=== PATIENT | female | born 1935 | race Caucasian/White ===

== ENCOUNTER 2016-07-04 10:55 | Emergency (ER) | payer OTHER ==
[~2016-07-04] VITALS: Ht 160 cm; Wt 96.0 kg
[~2016-07-04 10:55] MED LIST: FLUO1TAB3 PO; LORA1TAB12 PO
[2016-07-04 10:58] VITALS: BP 155/76; PULSE 69; RESP 18; TEMP 98; O2SAT 96
--- NOTE | 2016-07-04 11:08 | PD ---
HPI Chief Complaint: Cold / Flu Symptoms Time Seen by Provider: 11:02 Travel History International Travel<30 days: No Contact w/Intl Traveler<30days: No Traveled to known affect area: No History of Present Illness HPI 81-year-old female here with complaint of one week of flulike symptoms. Notes initially nasal congestion, postnasal drip and slight sore throat. Since, it has "moved into my chest", notes cough, productive of clearish sputum. Wheezing. No history of underlying cardiopulmonary disease. Given the duration of her symptoms, intractable cough, patient presents the ER. No recent travel. Multiple sick contacts ill with similar symptoms. PFSH Past Medical History Hx Anticoagulant Therapy: No Anxiety: Yes Cardiovascular Problems: No Chemotherapy: No Cerebrovascular Accident: No Diabetes: No Diminished Hearing: No Respiratory: No Immunizations Current: Yes ?: Not Menopausal: No : 1 Para: 1 Past Surgical History Hysterectomy: No Social History Alcohol Use: No (twice a week, one drink) Tobacco Use: No (quit 35 years ago) Allergies-Medications (Allergen,Severity, Reaction): Coded Allergies: Celebrex (Verified Allergy, Mild, ABDOMINAL PAIN, 07/04/16) Reported Meds & Prescriptions Reported Meds & Active Scripts Active Lorazepam 1 Mg Tab 1 Mg PO BID PRN Reported Fluoxetine (Fluoxetine HCl) 20 Mg Tab 20 Mg PO DAILY Review of Systems Except as stated in HPI: all other systems reviewed are Neg Physical Exam Narrative GENERAL: Well-appearing female in no acute distress SKIN: Warm and dry. HEAD: Normocephalic. EYES: No scleral icterus. No injection or drainage. ENT: TMs clear bilaterally. Posterior pharynx clear. No nasal bleeding or discharge. Mucous membranes pink and moist. NECK: Supple without nuchal rigidity CARDIOVASCULAR: Regular rate and rhythm. No murmur appreciated. RESPIRATORY: No accessory muscle use. Expiratory wheezing heard most in the upper lung draper. Intermittent primarily dry cough on exam GASTROINTESTINAL: Abdomen soft, non-tender, nondistended. Obese MUSCULOSKELETAL: No obvious deformities. No edema. NEUROLOGICAL: Awake and alert. Normal speech. PSYCHIATRIC: Appropriate mood and affect; insight and judgment normal. Data Data Last Documented VS Vital Signs Date Time Temp Pulse Resp B/P Pulse Ox O2 Delivery O2 Flow Rate FiO2 07/04/16 11:23 Room Air 07/04/16 10:58 98.0 69 18 155/76 96 Orders Chest, Single Ap (07/04/16 ) [facility] Medical Decision Making Medical Screen Exam Complete: Yes Emergency Medical Condition: Yes Medical Record Reviewed: Yes Differential Diagnosis 81-year-old female with one week of flulike symptoms and nasal congestion, postnasal drip, sore throat, chest congestion and cough. Differential includes viral syndrome, influenza, bronchitis, pneumonia, new onset CHF. Narrative Course Patient placed on monitor. Chest x-ray was obtained that by my read shows no acute abnormalities, evidence of focal infiltrate. We'll treat for bronchitis for home. Diagnosis Primary Impression: Bronchitis Referrals: Primary Care Physician as needed Patient Instructions: Acute Bronchitis (ED), General Instructions Additional Instructions: Finished steroids as prescribed. Mucinex as needed for cough and chest congestion. Albuterol as needed for wheezing. Return to the ER for the warning signs discussed and follow-up with PCP if symptoms persist. Med/Other Pt SpecificInfo: Prescription(s) given Scripts Albuterol 18 GM Inh (Ventolin Hfa 18 GM Inh)90 Mcg/Act Aer2 Puff INH Q4H PRN ( SHORTNESS OF BREATH) #1 INHALER Ref 0 Prov:Tiffanie Martino MD 07/04/16 Guaifenesin ER 12 HR (Mucinex ER 12 HR)600 Mg [id number] Mg PO BID 7 Days Ref 0 Prov:Tiffanie Martino MD 07/04/16 Prednisone 20 Mg Tab40 Mg PO DAILY 5 Days Ref 0 Take 40 mg (2 tablets) daily for 5 days Prov:Tiffanie Martino MD 07/04/16 Disposition: 01 DISCHARGE HOME Condition: Stable Tiffanie Martino MD Jul 04, 2016 11:08
--- NOTE | 2016-07-04 11:45 | RADHPO ---
EXAM DATE/TIME: 07/04/2016 11:29 [facility] COMPARISON: CHEST PA & LAT, May 13, 2015, 0:55. INDICATIONS : Cough and fever for over one week. Cough is productive. MEDICAL HISTORY : None. SURGICAL HISTORY : None. ENCOUNTER: Initial ACUITY: 4 - 6 days PAIN SCORE: 0/10 LOCATION: Bilateral chest FINDINGS: A single view of the chest demonstrates the lungs to be symmetrically aerated without evidence of mas s, infiltrate or effusion. The cardiomediastinal contours are unremarkable. Osseous structures are intact. CONCLUSION: No evidence of acute cardiopulmonary disease. Epifanio Toney MD on July 04, 2016 at 11:43 Board Certified Radiologist. This report was verified electronically.
[2016-07-04] MEDS ORDERED: MUCI600T PO (11:52)
[2016-07-04] MEDS ORDERED: PRED20 PO (11:52)
[2016-07-04] MEDS ORDERED: VENTAER INH (11:52)
[2016-07-04 12:06] VITALS: BP 150/74
[2016-10-01] MEDS ORDERED: GABA100C4 PO (11:06)
[2016-10-01] MEDS ORDERED: LORA1TAB12 PO ×2 (11:06→11:37)
[2016-10-01] MEDS ORDERED: FLUO1TAB3 PO (11:36)
== END 2016-07-04 12:08 | disposition home or self-care (01) ==
LOC: PHED 10:55
DX: J40 Bronchitis, not specified as acute or chronic (principal)
CPT/HCPCS: 71010; 99283

== ENCOUNTER 2017-08-06 16:34 | Emergency (ER) | payer OTHER ==
[~2017-08-06] VITALS: Ht 160 cm; Wt 88.5 kg
[2017-08-06 17:02] VITALS: BP 120/57; PULSE 72; RESP 16; TEMP 97.7; O2SAT 97
[2017-08-06 19:25] VITALS: BP 137/67; PULSE 68; RESP 16; O2SAT 97
[2017-08-06] MEDS ORDERED: GABA100C4 PO (19:26)
[2017-08-06] MEDS ORDERED: SODIUM CHLORIDE 0.9% FLUSH 10 ML FLUSH IVF PRN (19:45)
--- NOTE | 2017-08-06 19:48 | PD ---
HPI Chief Complaint: Cardiac Complaint Time Seen by Provider: 19:34 Travel History International Travel<30 days: No Contact w/Intl Traveler<30days: No Traveled to known affect area: No History of Present Illness HPI 82-year-old female presents to the emergency department for complaint of possible low blood pressure and discomfort behind the left scapula. Symptoms began this afternoon while at rest. Patient states because she developed the discomfort in her posterior shoulder she decided to check her blood pressure and that is when she noticed that her blood pressure was not detected on the home blood pressure device. Patient states she checked her pressure 3 times but could not get an adequate reading so she had her check his blood pressure which was reportedly resulting as normal. Patient decided to come to the emergency room to have her blood pressure checked. Patient states at home her discomfort along her left posterior shoulder was 4/10 in intensity, upon arrival to the emergency department her discomfort was 2/10 in intensity, and currently her discomfort is 0/10 intensity; patient denies any associated symptoms of chest pain, shortness of breath, referred neck, jaw, shoulder, arm, or abdominal pain. No upper extremity numbness tingling or weakness. Patient denies any specific injury. Patient has had no shortness of breath and no pleuritic pain or pleuritic chest pain. Patient denies any recent long distance travel protracted bedrest or surgical procedure. Patient also denies any personal history or family history of clotting disorder. Patient does have family history of CAD. Patient herself denies history of hypertension dyslipidemia diabetes tobaccoism or known coronary vessel disease. Patient has history of normally low blood pressure and peripheral neuropathy affecting the lower extremities bilaterally. Patient reports today after walking approximately a mile she noticed that her lower legs were hurting which is typical of her peripheral neuropathy pain but that after sitting down her symptoms seem to resolve and she has no discomfort in her lower extremities at this time. Patient denies any sudden onset lower extremity pain, pallor or coolness, nor swelling or redness. Patient is followed by Dr. Cornelius her neurologist. [facility] Past Medical History Narrative Medical Anxiety, lower extremity peripheral neuropathy; no tobacco; nursing notes reviewed Hx Anticoagulant Therapy: No Anxiety: Yes Cardiovascular Problems: No Chemotherapy: No Cerebrovascular Accident: No Diabetes: No Diminished Hearing: No Respiratory: No Immunizations Current: Yes Menopausal: No : 1 Para: 1 Past Surgical History Hysterectomy: No Social History Alcohol Use: No (twice a week, one drink) Tobacco Use: No (quit 35 years ago) Substance Use: No Allergies-Medications (Allergen,Severity, Reaction): Coded Allergies: celecoxib (Verified Allergy, Mild, ABDOMINAL PAIN, 08/06/17) Reported Meds & Prescriptions Reported Meds & Active Scripts Active Fluoxetine (Fluoxetine HCl) 20 Mg Tab 20 Mg PO DAILY Lorazepam 1 Mg Tab 1 Mg PO DAILY PRN Reported Gabapentin 100 Mg Cap 100 Mg PO DAILY Review of Systems Except as stated in HPI: all other systems reviewed are Neg General / Constitutional: No: Fever, Chills HENT: No: Congestion Cardiovascular: No: Chest Pain or Discomfort, Palpitations, Syncope, Dyspnea on exertion Respiratory: No: Cough, Shortness of Breath, Wheezing Gastrointestinal: No: Nausea, Vomiting, Abdominal Pain Genitourinary: No: Dysuria, Flank Pain Musculoskeletal: Positive: Pain (Bilateral lower extremity secondary to chronic peripheral neuropathy), No: Myalgias, Arthralgias Skin: No Rash Neurologic: No: Weakness Psychiatric: No: Anxiety Hematologic/Lymphatic: No: Lymph Node Enlargement Physical Exam Narrative GENERAL: Well-developed well-nourished female no acute distress or respiratory distress SKIN: Warm and dry. HEAD: Normocephalic. EYES: No scleral icterus. No injection or drainage. NECK: Supple, trachea midline. No JVD or lymphadenopathy. CARDIOVASCULAR: Regular rate and rhythm without murmurs, gallops, or rubs. RESPIRATORY: Breath sounds equal bilaterally. No accessory muscle use. GASTROINTESTINAL: Abdomen soft, non-tender, nondistended. MUSCULOSKELETAL: No cyanosis, or edema. Radial pulses 2+ to palpation bilaterally right dorsalis pedis pulse and posterior tibialis pulse 2+ to palpation left dorsalis pedis pulse 1+ to palpation posterior tibialis 2+ to palpation. Capillary refill brisk less than 2 seconds per digit bilaterally sensory exam intact. Motor strength 5/5. Bilateral lower leg no tenderness to palpation no pallor no coolness, also negative Homans, posterior calf cording edema or erythema. BACK: Nontender without obvious deformity. No CVA tenderness. Reproducible tenderness along the upper medial aspect of the left scapula and trapezius musculature reproduces pain noted earlier. Data Data Last Documented VS Vital Signs Date Time Temp Pulse Resp B/P (MAP) Pulse Ox O2 Delivery O2 Flow Rate FiO2 08/06/17 19:55 124/63 (83) 139/66 (90) 08/06/17 19:25 68 16 97 Room Air 08/06/17 17:02 97.7 Orders Orders Electrocardiogram (08/06/17 19:34) Ckmb (Isoenzyme) Profile (08/06/17 19:34) Complete Blood Count With Diff (08/06/17 19:34) Comprehensive Metabolic Panel (08/06/17 19:34) Magnesium (Mg) (08/06/17:34) Prothrombin Time / Inr (Pt) (08/06/17:34) Act Partial Throm Time (Ptt) (08/06/17:34) Troponin I (08/06/17:34) Lipase (08/06/17:34) Ecg Monitoring (08/06/17:34) Bilateral Bp Monitoring (08/06/17:34) Iv Access Insert/Monitor (08/06/17:34) Oximetry (08/06/17:34) Oxygen Administration (08/06/17:34) Sodium Chloride 0.9% Flush (Ns Flush) (08/06/17 19:45) Chest, Pa & Lat (08/06/17 19:34) Urinalysis - C+S If Indicated (08/06/17 20:16) Urine Culture (08/06/17 21:49) Labs Laboratory Tests Test 08/06/17 20:02 08/06/17 21:49 White Blood Count 8.8 TH/MM3 Red Blood Count 5.55 MIL/MM3 Hemoglobin 16.0 GM/DL Hematocrit 47.8 % Mean Corpuscular Volume 86.1 FL Mean Corpuscular Hemoglobin 28.8 PG Mean Corpuscular Hemoglobin Concent 33.5 % Red Cell Distribution Width 13.7 % Platelet Count 230 TH/MM3 Mean Platelet Volume 9.5 FL Neutrophils (%) (Auto) 81.2 % Lymphocytes (%) (Auto) 9.5 % Monocytes (%) (Auto) 5.2 % Eosinophils (%) (Auto) 2.2 % Basophils (%) (Auto) 1.9 % Neutrophils # (Auto) 7.1 TH/MM3 Lymphocytes # (Auto) 0.8 TH/MM3 Monocytes # (Auto) 0.5 TH/MM3 Eosinophils # (Auto) 0.2 TH/MM3 Basophils # (Auto) 0.2 TH/MM3 CBC Comment DIFF FINAL Differential Comment Prothrombin Time 10.9 SEC Prothromb Time International Ratio 1.1 RATIO Activated Partial Thromboplast Time 22.9 SEC Blood Urea Nitrogen 21 MG/DL Creatinine 1.00 MG/DL Random Glucose 90 MG/DL Total Protein 8.6 GM/DL Albumin 4.1 GM/DL Calcium Level 9.8 MG/DL Magnesium Level 2.0 MG/DL Alkaline Phosphatase 82 U/L Aspartate Amino Transf (AST/SGOT) 28 U/L Alanine Aminotransferase (ALT/SGPT) 27 U/L Total Bilirubin 0.6 MG/DL Sodium Level 138 MEQ/L Potassium Level 4.4 MEQ/L Chloride Level 104 MEQ/L Carbon Dioxide Level 26.0 MEQ/L Anion Gap 8 MEQ/L Estimat Glomerular Filtration Rate 53 ML/MIN Total Creatine Kinase 61 U/L Troponin I LESS THAN 0.02 NG/ML Lipase 115 U/L Urine Color YELLOW Urine Turbidity CLOUDY Urine pH 5.5 Urine Specific [place] GREATER/EQUAL 1.030 Urine Protein 30 mg/dL Urine Glucose (UA) NEG mg/dL Urine Ketones 40 mg/dL Urine Occult Blood LARGE Urine Nitrite NEG Urine Bilirubin NEG Urine Urobilinogen 0.2 MG/DL Urine Leukocyte Esterase MOD Urine RBC 10-14 /hpf Urine WBC 50-99 /hpf Urine WBC Clumps FEW Urine Squamous Epithelial Cells > 8 /hpf Urine Bacteria MANY /hpf Microscopic Urinalysis Comment CULTURE INDICATED MDM Medical Decision Making Medical Screen Exam Complete: Yes Emergency Medical Condition: Yes Medical Record Reviewed: Yes Interpretation(s) EKG normal sinus rhythm rare PVC left axis deviation left bundle branch block; left bundle branch block is noted since 05/12/15 Last Impressions Chest X-Ray 08/06/171933 Signed Impressions: Service Date/Time: Sunday, August 06, 2017 19:43 - CONCLUSION: 1. No active disease. Moderate hiatal hernia. Compression deformity at T12. Babak Levine MD CBC & BMP Diagram 08/06/17 20:02 Total Protein 8.6 H, Albumin 4.1, Calcium Level 9.8, Magnesium Level 2.0, Alkaline Phosphatase 82, Aspartate Amino Transf (AST/SGOT) 28, Alanine Aminotransferase (ALT/SGPT) 27, Total Bilirubin 0.6 Vital Signs Date Time Temp Pulse Resp B/P (MAP) Pulse Ox O2 Delivery O2 Flow Rate FiO2 08/06/17 19:55 124/63 (83) 139/66 (90) 08/06/17 19:25 68 16 137/67 (90) 97 Room Air 08/06/17 19:25 Room Air 08/06/17 19:25 16 97 Room Air 08/06/17 19:25 97 Room Air 08/06/17 17:02 97.7 72 16 120/57 (78) 97 Troponin I: Less than 0.02, not elevated Differential Diagnosis Scapular pain, aortic dissection, atypical chest pain, ACS, IN, pleurisy, PE, musculoskeletal pain, claudication Narrative Course Patient placed on telemetry monitor IV access obtained specimens collected and sent for resulting EKG performed shows left bundle branch block with no acute injury pattern and is essentially unchanged from comparison EKG of 04/2015 Patient resting comfortably voicing no complaints or concerns only notes discomfort to the left medial scapula with direct palpation where she has some reproducible mild trigger points. Lab values found to be in normal range Left lower extremity ankle-brachial index 0.9-1.01 left upper extremity blood pressure 139/57 and left posterior tibialis systolic 141 mmHg left dorsalis pedis 127 mmHg and right lower extremity SAMUEL 0.901-1.1 right upper extremity BP 139/61 right posterior tibialis systolic bp 131 mmHg and right dorsalis pedis pulse 154mmHg. CBC with automated differential values in normal range; metabolic panel within normal limits Troponin I is less than 0.02, not elevated CK total 61. Patient resting comfortably voicing no concerns or complaints Chest x-ray notable for T12 compression fracture review of medical records indicates patient was identified to have an T12 compression fracture in 2014 no recent injury or fall however had had fall at that time therefore suspect that this is chronic or nonacute. Urinalysis abnormal positive for white blood cells clumped white blood cells many bacteria culture indicated; patient given first dose of oral antibiotic Macrobid in the emergency department is stable for outpatient management. Diagnosis Primary Impression: Musculoskeletal disorder involving upper trapezius muscle Additional Impressions: Compression fracture of T12 vertebra with routine healing UTI (urinary tract infection) Qualified Codes: N30.00 - Acute cystitis without hematuria Referrals: Primary Care Physician 3 days Patient Instructions: General Instructions Additional Instructions: Take acetaminophen/Tylenol as needed for minor discomfort associated with musculature of the posterior shoulder as needed per package directions May apply moist heat to the upper back as needed for muscle spasm pain Follow-up with your primary care provider call office on Wednesday to schedule follow-up appointment Return to the emergency department for any concerns or change in condition Continue chronic medications as chronically prescribed Med/Other Pt SpecificInfo: Prescription(s) given Scripts Nitrofurantoin Monohydrate Macrocrystals (Macrobid) 100 Mg Cap 100 MG PO BID for Infection for 7 Days, #14 CAP 0 Refills Prov: Ileana Norton MD 08/06/17 Disposition: DISCHARGE HOME Condition: Stable Ileana Norton MD Aug 06, 2017 19:48
[2017-08-06 19:55] VITALS: BP_SYST 124; BP_SYST 139; BP_DIAS 63; BP_DIAS 66
[2017-08-06 20:09] LABS: AUTOMATED NEUTROPHIL # 7.1 TH/MM3 (1.8-7.7); BASOPHIL # 0.2 TH/MM3 (0-0.2); BASOPHIL % 1.9 % (0.0-2.0); EOSINOPHIL # 0.2 TH/MM3 (0-0.4); EOSINOPHIL % 2.2 % (0.0-4.0); HEMATOCRIT 47.8 % (35.0-46.0); LYMPH % 9.5 % (9.0-44.0); LYMPHOCYTE # 0.8 TH/MM3 (1.0-4.8); MEAN CELL VOLUME 86.1 FL (80.0-100.0); MEAN CORPUSCULAR HEMOGLOBIN 28.8 PG (27.0-34.0); MEAN CORPUSCULAR HGB CONC 33.5 % (32.0-36.0); MEAN PLATELET VOLUME 9.5 FL (7.0-11.0); MONO % 5.2 % (0.0-8.0); MONOCYTE # 0.5 TH/MM3 (0-0.9); NEUT % 81.2 % (16.0-70.0); PLATELET COUNT 230 TH/MM3 (150-450); RED BLOOD COUNT 5.55 MIL/MM3 (4.00-5.30); RED CELL DISTRIBUTION WIDTH 13.7 % (11.6-17.2); WHITE BLOOD COUNT 8.8 TH/MM3 (4.0-11.0)
[2017-08-06 20:19] LABS: CHLORIDE 104 MEQ/L (98-107); SODIUM (NA) 138 MEQ/L (136-145)
[2017-08-06 20:23] LABS: ALBUMIN 4.1 GM/DL (3.4-5.0); CALCIUM 9.8 MG/DL (8.5-10.1)
[2017-08-06 20:24] LABS: BLOOD UREA NITROGEN 21 MG/DL (7-18); GLUCOSE,RANDOM 90 MG/DL (74-106); INTERNATIONAL NORMALIZED RATIO 1.1 RATIO; PROTHROMBIN TIME - PATIENT 10.9 SEC (9.8-11.6)
[2017-08-06 20:26] LABS: ALT (GPT) 27 U/L (10-53); AST (GOT) 28 U/L (15-37)
[2017-08-06 20:27] LABS: GLOMERULAR FILTRATION RATE 53 ML/MIN (>89)
[2017-08-06 20:28] LABS: TOTAL BILIRUBIN ADULT 0.6 MG/DL (0.2-1.0); TOTAL PROTEIN 8.6 GM/DL (6.4-8.2)
[2017-08-06 20:29] LABS: ALKALINE PHOSPHATASE 82 U/L (45-117)
[2017-08-06 20:32] LABS: TROPONIN I LESS THAN 0.02 NG/ML (0.02-0.05)
--- NOTE | 2017-08-06 20:38 | RADRPT ---
EXAM DATE/TIME: 08/06/2017 19:43 [facility] COMPARISON: CHEST PA & LAT, May 13, 2015, 0:55. INDICATIONS : Chest pain. MEDICAL HISTORY : None. SURGICAL HISTORY : None. ENCOUNTER: Initial ACUITY: 1 day PAIN SCORE: 5/10 LOCATION: Bilateral chest FINDINGS: PA and lateral views of the chest demonstrate the lungs to be symmetrically aerated without evidence of mass, infiltrate or effusion. The cardiomediastinal contours are unremarkable except hiatal herni a. Osseous structures are intact. CONCLUSION: 1. No active disease. Moderate hiatal hernia. Compression deformity at T12. Babak Levine MD on August 06, 2017 at 20:34 Board Certified Radiologist. This report was verified electronically.
[2017-08-06 21:56] LABS: BLOOD, URINE LARGE (NEG); GLUCOSE,URINE NEG (NEG); KETONE, URINE 40 mg/dL (NEG); NITRITE,URINE NEG (NEG); PH, URINE 5.5 (5.0-8.5); URINE COLOR YELLOW (YELLW/STRAW); URINE LEUKOCYTE ESTERASE MOD (NEG)
[2017-08-06 21:58] LABS: BILIRUBIN, URINE NEG (NEG)
[2017-08-06 22:01] LABS: BACTERIA, URINE MANY /hpf; SQUAMOUS EPITHELIAL CELL URINE > 8 /hpf (0-5); WHITE BLOOD CELL CLUMPS FEW
[2017-08-06 22:05] VITALS: BP 138/61; PULSE 71; RESP 16; O2SAT 97
[2017-08-06] MEDS ORDERED: MACR100C2 PO (22:12)
[2017-08-06] MEDS ORDERED: NITROFURANTOIN MONOHYD MACROCR 100 MG CAP PO ONE (22:15)
--- NOTE | 2017-08-07 20:00 | EKG ---
Date Performed: 08/06/2017 Time Performed: 17:10:26 PTAGE: 82 years EKG: Sinus rhythm WITH OCCASIONAL VENTRICULAR PREMATURE COMPLEXES MARKED LEFT AXIS DEVIATION LEFT BUNDLE BRANCH BLOCK ABNORMAL ECG Since PREVIOUS TRACING , no significant change noted PREVIOUS TRACIN05/14/2015 23.24.56 DOCTOR: Kalen Levine Interpretating Date/Time 08/07/2017 19:58:53
== END 2017-08-06 22:40 | disposition home or self-care (01) ==
LOC: PHED 16:34
DX: M79.9 Soft tissue disorder, unspecified (principal); S22.089D Unspecified fracture of T11-T12 vertebra, subsequent encounter for fracture with routine healing; N30.00 Acute cystitis without hematuria; B95.1 Streptococcus, group B, as the cause of diseases classified elsewhere; M25.512 Pain in left shoulder; M79.604 Pain in right leg; M79.605 Pain in left leg; I44.7 Left bundle-branch block, unspecified; R94.31 Abnormal electrocardiogram [ECG] [EKG]; I95.9 Hypotension, unspecified; G62.9 Polyneuropathy, unspecified; F41.9 Anxiety disorder, unspecified; W19.XXXD Unspecified fall, subsequent encounter
CPT/HCPCS: 71046; 80053; 81001; 82550; 83690; 83735; 84484; 85025; 85610; 85730; 86403; 87086; 93005; 99285